=== PATIENT | male | born 1985 | race Caucasian/White ===

== ENCOUNTER 2025-03-11 17:09 | Observation (INO) ==
[2025-03-11] MEDS: SODIUM CHLORIDE 0.9% 1,000 ML IV ONE (18:05)
[2025-03-11 18:25] LABS: Hematocrit (blood only) 40.2 % (42.0-52.0); Hemoglobin 13.7 g/dl (14.0-18.0); Immature Granulocytes # (auto) 0.02 K/uL (0.01-0.20); Immature Granulocytes % (auto) 0.3 %; Mean Corpuscular Hemoglobin 29.5 pg (25.0-34.0); Mean Corpuscular Volume 86.5 fL (80.0-100.0); Platelet Count 237 K/uL (130-400); RDW Standard Deviation 37.7 fL (36.4-46.3); Red Blood Count 4.65 M/uL (4.70-6.10); White Blood Count 7.97 K/ul (4.8-10.8)
[2025-03-11 18:40] LABS: Alanine Aminotransferase 7.0 U/L (7-52); Albumin Level 3.6 gm/dl (3.4-5.0); Alkaline Phosphatase 66.0 U/L (34-104); Anion Gap 9.0 (3-11); Bilirubin,Total 0.4 mg/dl (0.2-1.0); Blood Urea Nitrogen 6.0 mg/dl (6-23); Calcium 8.8 mg/dl (8.6-10.3); Carbon Dioxide 26.0 mmol/L (21-32); Chloride 101.0 mmol/L (98-107); Creatinine Clr Calc Pharmacy 89.8 ml/min; Glucose 100.0 mg/dl (70-99(Fasting)); Lipase 407.0 U/L (11-82); Potassium 3.8 mmol/L (3.5-5.1); Sodium 136.0 mmol/L (136-145); Total Protein 6.3 gm/dl (6.0-8.3)
[2025-03-11 18:55] LABS: INR 1.0 (0.9-1.1); Partial Thromboplastin Time 29 Seconds (21-31); Prothrombin Time 10.7 Seconds (9.0-12.0)
[2025-03-11] MEDS: OPTIRAY 320 100ml IV ONE (19:22)
--- NOTE | 2025-03-11 19:48 | CT Scan Report ---
CT ABDOMEN and PELVIS with INTRAVENOUS CONTRAST HISTORY: Abdominal pain. Concern for pancreatitis TECHNIQUE: CT abdomen and pelvis with contrast. IV CONTRAST: 100 mL of OMNIPAQUE 300 ENTERIC CONTRAST: Not Given COMPARISON: None FINDINGS: The coronal and the sagittal reformats were not made available at the time of the dictation of this report LOWER CHEST: Unremarkable LIVER: Hepatomegaly. Scattered hypodensities measuring up to 9 mm are probably cysts or angiomas. GALLBLADDER/BILIARY: Unremarkable gallbladder. No abnormal biliary dilatation. SPLEEN: Unremarkable. PANCREAS: Unremarkable. No appreciable inflammation is detected ADRENALS: Unremarkable. KIDNEYS: Unremarkable. No stones or hydronephrosis identified. PERITONEUM/RETROPERITONEUM. No lymphadenopathy by size criteria. No aortic aneurysm. GASTROINTESTINAL: No obstruction. Diffuse inflammatory changes of the entire colon with wall thickening. Mild wall thickening of the stomach and the loops of small bowel is also present. Appendix is not definitively identified due to crowding of the visceral structures in the lower abdomen. Within this constraint, no significant pericecal inflammation is seen. REPRODUCTIVE: Unremarkable URINARY BLADDER: Mild wall thickening BONES: No acute findings. IMPRESSION: Findings of pancolitis and mild gastroenteritis. Appendix is not definitively identified due to crowding of the visceral structures in the lower abdomen. Within this constraint, no significant pericecal inflammation is seen. Inflammatory changes of the urinary bladder may be due to cystitis No significant inflammation is seen surrounding the pancreas however recommend correlation lipase to exclude a mild form of pancreatitis. Electronically signed by Samm Montes 03-11-2025 7:48 PM
[2025-03-11] MEDS: FIDAXOMICIN 200 MG TAB PO ONE (20:50)
[2025-03-11 21:19] LABS: Magnesium 1.9 mg/dl (1.7-2.4)
--- NOTE | 2025-03-11 22:06 | History & Physical Report ---
Date of Service March 11, 2025 Assessment & Plan (1) Colitis: (2) C. difficile colitis: Plan The patient is a 39-year-old male with past medical history including colitis, and C. difficile colitis. The patient presents to the emergency department with complaint of abdominal pain, persistent diarrhea and increasing blood in stool. Has a history of colitis, for which she is on mesalamine rectally. Due to a change in his usual symptoms, he had stool studies done a week ago, and was told he had C. difficile. He was placed on vancomycin orally, has been on it for 5 days, and since he had no improvement, was sent by outpatient gastroenterology to the ED for assessment. In emergency department, patient had a CT scan of abdomen and pelvis which showed a pancolitis, mild gastroenteritis, and cystitis. Lipase is mildly elevated at 407. He was given a dose of Dificid 200 milligrams, and normal saline 1 L bolus. Stool BioFire was ordered and pending. Patient reports at this time he was unsure if what was present now is the aggravation of his underlying colitis, or persistence of his C. difficile colitis. He has had significantly decreased oral intake over the past several days. He was [facility] for [facility], for further evaluation and treatment. C. difficile colitis/inflammatory colitis- Patient has known history of inflammatory colitis, for which he takes mesalamine VA as needed. He was diagnosed with C. difficile recently, and was placed on vancomycin orally, of which he is taking 5 days at this point. He presented to the emergency department because he was concerned that his C. difficile may not be responding to the vancomycin, due to the persistence of bloody diarrhea and abdominal pain. He reports that he is not sure if the diarrhea at this point is related to the C. difficile colitis, or if he is left with aggravation of his underlying inflammatory colitis. His outpatient GI doctors had considered a dosing of prednisone to see if the bloody diarrhea responded, but he was concerned about potential problem of prednisone worsening the C. difficile colitis that was the cause. His stool PCR testing is negative, including negative for C. difficile gene and C. difficile toxin. He did receive a single dose of Dificid in the ED, and he was to continue Dificid 200 mg twice daily, however, it would appear that the oral vancomycin has in fact made progress in clearing the C. difficile, and that the remaining underlying process may be associated with his inflammatory colitis. Will consult gastroenterology, and have them determine whether he should resume vancomycin orally and complete a 10-day course. Whether he should take a course of Dificid to verify that the C. difficile remains treated, since he still having some significant bloody diarrhea. Or should be placed on a course of prednisone orally/Solu-Medrol IV to treat the underlying inflammatory colitis and continue vancomycin or Dificid orally to treat the C. difficile and keep it from recurring. Full liquid diet Pantoprazole 40 mg IV now and 9 AM Zofran 4 mg IV every 6 hours as needed Acetaminophen 1 g IV every 8 hours as needed for mild pain or fever Mesalamine suppositories 1 g, VA at bedtime as needed Normal saline + KCl 20 mEq at 100 mL/h x 2 L Serial CBC with differential, chemistry profile and magnesium level History of Present Illness Chief Complaint: The patient presents to the emergency department with complaint of abdominal pain, persistent diarrhea and increasing blood in stool. Has a history of colitis, for which she is on mesalamine rectally. Due to a change in his usual symptoms, he had stool studies done a week ago, and was told he had C. difficile. He was placed on vancomycin orally, has been on it for 5 days, and since he had no improvement, was sent by outpatient gastroenterology to the ED for assessment. In emergency department, patient had a CT scan of abdomen and pelvis which showed a pancolitis, mild gastroenteritis, and cystitis. Lipase is mildly elevated at 407. He was given a dose of Dificid 200 milligrams, and normal saline 1 L bolus. Stool BioFire was ordered and pending. Patient reports at this time he was unsure if what was present now is the aggravation of his underlying colitis, or persistence of his C. difficile colitis. Primary Care Provider: Jonny Powell MD The patient is a 39-year-old male with past medical history including colitis, and C. difficile colitis. The patient presents to the emergency department with complaint of abdominal pain, persistent diarrhea and increasing blood in stool. Has a history of colitis, for which she is on mesalamine rectally. Due to a change in his usual symptoms, he had stool studies done a week ago, and was told he had C. difficile. He was placed on vancomycin orally, has been on it for 5 days, and since he had no improvement, was sent by outpatient gastroenterology to the ED for assessment. In emergency department, patient had a CT scan of abdomen and pelvis which showed a pancolitis, mild gastroenteritis, and cystitis. Lipase is mildly elevated at 407. He was given a dose of Dificid 200 milligrams, and normal saline 1 L bolus. Stool BioFire was ordered and pending. Patient reports at this time he was unsure if what was present now is the aggravation of his underlying colitis, or persistence of his C. difficile colitis. He has had significantly decreased oral intake over the past several days. He was referred to the [facility] for admission, for further evaluation and treatment Allergies Allergy/AdvReac Type Severity Reaction Status Date / Time No Known Allergies Allergy Verified 03/11/25 19:37 Home Medications Medication Instructions Recorded Confirmed Type mesalamine 1,000 mg rectal 1 g VA HS 03/11/25 03/11/25 History suppository prednisone 10 mg tablet 0 mg PO DIRECTED 03/11/25 03/11/25 History vancomycin 125 mg capsule 125 mg PO QID 03/11/25 03/11/25 History Past Med/Surg History Problem List (Updated 03/12/25 @ 00:09 by Chris Mann MD) Elevated lipase (Acute) C. difficile colitis (Acute) No significant past surgical history No significant past medical history Medical History (Updated 03/12/25 @ 00:09 by Chris Mann MD) Colitis Social History Smoking Status: Never smoker Hx Alcohol Use: Yes Hx Substance Use: Yes Last Used Substance: Days (ago) Preferred Language: Polish Communication Ability: Effective Swabber Required: No Beliefs That Will Affect Care: None Current Living Situation: Significant Other Current Living Situation Comment: lives at home with girlfriend Other Information That Helps Us Care for You: No Feels Safe at Home: Yes Safety Concerns: Feels Safe At This Time Assistive Devices: None Review of Systems Review of Systems: The patient denies chest pain, palpitations, shortness of breath, dyspnea on exertion, cough, lower extremity swelling, sore throat, fevers, chills, sweats, vomiting, blood in urine, dysuria, urinary frequency or urgency, lightheadedness, dizziness, headache, memory loss, loss of consciousness, rash, abnormal bruising, imbalance, focal or generalized weakness, numbness or tingling in arms or legs, generalized arthralgias or myalgias, back or neck pain, or night sweats. The review of systems is otherwise negative other than for that already noted above, and at least 10 systems have been reviewed. Physical Exam Physical Exam: The patient is awake, alert and oriented 3, well developed and well nourished, normocephalic and atraumatic, lying in bed and in no acute distress. HEENT--PERRL, EOMI, mucous membranes and oropharynx dry. Neck--supple. No JVD. No bruits. Thyroid normal, trachea midline, no adenopathy. Heart--normal S1 and S2. No murmurs, rubs or gallops. Lungs--clear bilaterally, no respiratory distress, no accessory muscle use. Abdomen--normal bowel sounds and soft. Generalized mild tenderness. Nondistended, no hernias or masses, no organomegaly. Extremities--no cyanosis or clubbing. No edema. Dermatologic--normal skin turgor, normal color, no abnormal lymph nodes, no rash. Neurologic--cranial nerves II through XII grossly intact. Rheumatologic--normal range of motion. Psychiatric--normal affect. Results & Data Results & Data Vital Signs (Past 12 Hours) Vital Signs Temp Pulse Pulse Resp BP BP Pulse Ox 03/11/25 21:55 76 03/11/25 20:00 65 20 138/74 99 03/11/25 18:23 64 03/11/25 18:04 69 20 135/79 97 03/11/25 17:58 70 22 98 03/11/25 17:30 36.9 C 84 20 126/78 98 O2 Del Method 03/11/25 21:55 03/11/25 20:00 Room Air 03/11/25 18:23 03/11/25 18:04 Room Air 03/11/25 17:58 Room Air 03/11/25 17:30 Room Air Laboratory Results Laboratory Results WBC 7.97 K/ul (4.8-10.8) 03/11/25 18:11 RBC 4.65 M/uL (4.70-6.10) L 03/11/25 18:11 Hgb 13.7 g/dl (14.0-18.0) L 03/11/25 18:11 Hct 40.2 % (42.0-52.0) L 03/11/25 18:11 MCV 86.5 fL (80.0-100.0) 03/11/25 18:11 MCH 29.5 pg (25.0-34.0) 03/11/25 18:11 MCHC 34.1 g/dL (32.0-36.0) 03/11/25 18:11 RDW Std Deviation 37.7 fL (36.4-46.3) 03/11/25 18:11 RDW Coeff of Liu 12.0 % (11.5-14.5) 03/11/25 18:11 Plt Count 237 K/uL (130-400) 03/11/25 18:11 MPV 9.1 fL (9.4-12.4) L 03/11/25 18:11 Immature Gran % (Auto) 0.3 % 03/11/25 18:11 Neut % (Auto) 68.5 % 03/11/25 18:11 Lymph % (Auto) 18.4 % 03/11/25 18:11 [place] % (Auto) 8.7 % 03/11/25 18:11 Eos % (Auto) 3.6 % 03/11/25 18:11 Baso % (Auto) 0.5 % 03/11/25 18:11 Neut # (Auto) 5.46 K/uL (1.40-6.50) 03/11/25 18:11 Lymph # (Auto) 1.47 K/uL (1.20-3.40) 03/11/25 18:11 [place] # (Auto) 0.69 K/uL (0.11-0.59) H 03/11/25 18:11 Eos # (Auto) 0.29 K/uL (0.00-0.50) 03/11/25 18:11 Baso # (Auto) 0.04 K/uL (0.00-0.20) 03/11/25 18:11 Immature Gran # (Auto) 0.02 K/uL (0.01-0.20) 03/11/25 18:11 PT 10.7 Seconds (9.0-12.0) 03/11/25 18:11 INR 1.0 (0.9-1.1) 03/11/25 18:11 APTT 29 Seconds (21-31) 03/11/25 18:11 PTT Ratio 1.1 03/11/25 18:11 Sodium 136 mmol/L (136-145) 03/11/25 18:11 Potassium 3.8 mmol/L (3.5-5.1) 03/11/25 18:11 Chloride 101 mmol/L (98-107) 03/11/25 18:11 Carbon Dioxide 26 mmol/L (21-32) 03/11/25 18:11 Anion Gap 9 (3-11) 03/11/25 18:11 BUN 6 mg/dl (6-23) 03/11/25 18:11 Creatinine 1.09 mg/dl (0.6-1.4) 03/11/25 18:11 Est Cr Clr Drug Dosing 89.8 ml/min 03/11/25 18:11 eGFR 89.65 03/11/25 18:11 BUN/Creatinine Ratio 5.5 (10-20) L 03/11/25 18:11 Glucose 100 mg/dl (70-99(Fasting)) H 03/11/25 18:11 Calcium 8.8 mg/dl (8.6-10.3) 03/11/25 18:11 Magnesium 1.9 mg/dl (1.7-2.4) 03/11/25 18:11 Total Bilirubin 0.4 mg/dl (0.2-1.0) 03/11/25 18:11 Direct Bilirubin 0.0 mg/dl (0-0.2) 03/11/25 18:11 AST 12 U/L (13-39) L 03/11/25 18:11 ALT 7 U/L (7-52) 03/11/25 18:11 Alkaline Phosphatase 66 U/L (34-104) 03/11/25 18:11 Total Protein 6.3 gm/dl (6.0-8.3) 03/11/25 18:11 Albumin 3.6 gm/dl (3.4-5.0) 03/11/25 18:11 Lipase 407 U/L (11-82) H 03/11/25 18:11 Stl C. cayetanensis PCR Not Detected (NotDetected) 03/11/25 23:42 Stool Rotavirus A PCR Not Detected (NotDetected) 03/11/25 23:42 Stl Adenov F 40/41 PCR Not Detected (NotDetected) 03/11/25 23:42 Stool Astrovirus (PCR) Not Detected (NotDetected) 03/11/25 23:42 Stool Campylobacter PCR Not Detected (NotDetected) 03/11/25 23:42 Stl C. diff Tox B Gene Negative Cdiff Gene (Neg) 03/11/25 23:42 Stl C. diff 027-NAP1-BI NEGATIVE 03/11/25 23:42 Stool Cryptosporidium PCR Not Detected (NotDetected) 03/11/25 23:42 Stl E.coli Shiga Tox PCR Not Detected (NotDetected) 03/11/25 23:42 Stl Enterotoxigenic E PCR Not Detected (NotDetected) 03/11/25 23:42 Stool EPEC (PCR) Not Detected (NotDetected) 03/11/25 23:42 Stool EAEC (PCR) Not Detected (NotDetected) 03/11/25 23:42 Stl E. histolytica PCR Not Detected (NotDetected) 03/11/25 23:42 Stool Giardia Lamblia PCR Not Detected (NotDetected) 03/11/25 23:42 Stool Salmonella PCR Not Detected (NotDetected) 03/11/25 23:42 Stool Sapovirus (PCR) Not Detected (NotDetected) 03/11/25 23:42 Stl P. shigelloides PCR Not Detected (NotDetected) 03/11/25 23:42 Stl Shigella/EIEC PCR Not Detected (NotDetected) 03/11/25 23:42 St Y.enterocolitica PCR Not Detected (NotDetected) 03/11/25 23:42 Stool Vibrio (PCR) Not Detected (NotDetected) 03/11/25 23:42 Stl Vibrio cholerae PCR Not Detected (NotDetected) 03/11/25 23:42 Stl Norovirus GI/GII PCR Not Detected (NotDetected) 03/11/25 23:42 Impressions Abdomen/Pelvis CT 03/11/25 18:46 CT ABDOMEN and PELVIS with INTRAVENOUS CONTRAST HISTORY: Abdominal pain. Concern for pancreatitis TECHNIQUE: CT abdomen and pelvis with contrast. IV CONTRAST: 100 mL of OMNIPAQUE 300 ENTERIC CONTRAST: Not Given COMPARISON: None FINDINGS: The coronal and the sagittal reformats were not made available at the time of the dictation of this report LOWER CHEST: Unremarkable LIVER: Hepatomegaly. Scattered hypodensities measuring up to 9 mm are probably cysts or angiomas. GALLBLADDER/BILIARY: Unremarkable gallbladder. No abnormal biliary dilatation. SPLEEN: Unremarkable. PANCREAS: Unremarkable. No appreciable inflammation is detected ADRENALS: Unremarkable. KIDNEYS: Unremarkable. No stones or hydronephrosis identified. PERITONEUM/RETROPERITONEUM. No lymphadenopathy by size criteria. No aortic aneurysm. GASTROINTESTINAL: No obstruction. Diffuse inflammatory changes of the entire colon with wall thickening. Mild wall thickening of the stomach and the loops of small bowel is also present. Appendix is not definitively identified due to crowding of the visceral structures in the lower abdomen. Within this constraint, no significant pericecal inflammation is seen. REPRODUCTIVE: Unremarkable URINARY BLADDER: Mild wall thickening BONES: No acute findings. IMPRESSION: Findings of pancolitis and mild gastroenteritis. Appendix is not definitively identified due to crowding of the visceral structures in the lower abdomen. Within this constraint, no significant pericecal inflammation is seen. Inflammatory changes of the urinary bladder may be due to cystitis No significant inflammation is seen surrounding the pancreas however recommend correlation lipase to exclude a mild form of pancreatitis. Electronically signed by Samm Montes 03-11-2025 7:48 PM Code Status & VTE Plan Code Status Full code VTE Prophylaxis Plan VTE Prophylaxis will be ordered: Yes PG Care Time/CCT Total # of Minutes Spent Total Time Spent with Patient: Total time spent is greater than 50% in coordination of care (as documented) at patient's floor/unit and/or counseling patient: Coding Level of Care Code 60415 INT INP/OBS CARE 3/75MIN Diagnoses Colitis K52.9 C. difficile colitis A04.72
[2025-03-11] MEDS: NSS + 20MEQ KCL 20 MEQ/1,000 ML BAG IV SCH (22:14)
--- NOTE | 2025-03-12 00:09 | Emergency Department Note ---
History of Present Illness General Chief Complaint: GI Assessment Stated Complaint: COLITIS, GI INFECTION, ABD PAIN, SX PAST WK OR SO Time Seen by Provider: 03/11/25 17:45 History of Present Illness Provider Complaint: abdominal pain Onset (ago): 1 week(s) Pain Consistency: intermittent Location: diffuse Severity: moderate Maximum Pain Intensity: 6 Quality: + cramping, + stabbing and + sharp Relieved By: + nothing Exacerbated By: + bowel movement Context: + recent antibiotic use (Patient reports he was recently diagnosed with C. difficile and has been on oral vancomycin prescribed by his GI doctor for the last 5 days) and + history of similar episodes (History of colitis.); no foreign travel, no possible food poisoning, no sick contacts, no recent surgery/procedure or no recent injury Associated Symptoms: + hematochezia; no nausea, no vomiting, no diarrhea, no fever, no chills, no constipation, no dysuria, no hematemesis, no hematuria, no headache, no neck pain, no chest pain and no breathing difficulty Home Medications Medication Instructions Recorded Confirmed Type mesalamine 1,000 mg rectal [address] HS 03/11/25 03/11/25 History suppository prednisone 10 mg tablet 0 mg PO DIRECTED 03/11/25 03/11/25 History vancomycin 125 mg capsule 125 mg PO QID 03/11/25 03/11/25 History Allergies Allergy/AdvReac Type Severity Reaction Status Date / Time No Known Allergies Allergy Verified 03/11/25 19:37 Past Med/Surg History Problem List (Updated 03/12/25 @ 00:09 by Chris Mann MD) Elevated lipase (Acute) C. difficile colitis (Acute) No significant past surgical history No significant past medical history Medical History (Updated 03/12/25 @ 00:09 by Chris Mann MD) Colitis Social History Smoking Status: Never smoker Preferred Language: Citizen Of [place] Feels Safe at Home: Yes Physical Exam 2 Vital Signs: Vital Signs - 24 hr 03/11/25 17:30 03/11/25 17:58 03/11/25 18:04 Temperature 36.9 C Temperature Source Oral Pulse Rate 84 70 Pulse Rate [Finger ] 69 Pulse Rhythm Regular Pulse Rhythm [Fing er] Pulse Strength Normal Pulse Strength [Fi nger] Respiratory Rate 20 22 20 Respiratory Effort / Characteristics Non-Labored Sponta neous Respiratory Depth Normal Respiratory Patter n Regular Blood Pressure 126/78 Blood Pressure [Le ft Arm] 135/79 Blood Pressure Margaret n 94 Blood Pressure Margaret n [Left Arm] 97 Blood Pressure Pos ition Sitting Blood Pressure Pos ition [Left Arm] Pulse Oximetry 98 98 97 Oxygen Delivery Me thod Room Air Room Air Room Air Sepsis Recent Feve r Within 48 Hours No Sepsis New/Unexpla ined Change in Men tamanna Status No Sepsis Action Take n by Nursing No Action Required 03/11/25 18:23 03/11/25 20:00 03/11/25 21:55 Temperature Temperature Source Pulse Rate 64 76 Pulse Rate [Finger ] 65 Pulse Rhythm Pulse Rhythm [Fing er] Regular Pulse Strength Pulse Strength [Fi nger] Normal Respiratory Rate 20 Respiratory Effort / Characteristics Non-Labored Sponta neous Respiratory Depth Normal Respiratory Patter n Regular Blood Pressure Blood Pressure [Le ft Arm] 138/74 Blood Pressure Margaret n Blood Pressure Margaret n [Left Arm] 95 Blood Pressure Pos ition Blood Pressure Pos ition [Left Arm] Lying Pulse Oximetry 99 Oxygen Delivery Me thod Room Air Sepsis Recent Feve r Within 48 Hours Sepsis New/Unexpla ined Change in Men tamanna Status Sepsis Action Take n by Nursing 03/11/25 22:00 03/11/25 23:53 Temperature Temperature Source Pulse Rate 79 Pulse Rate [Finger ] 65 Pulse Rhythm Pulse Rhythm [Fing er] Regular Pulse Strength Pulse Strength [Fi nger] Normal Respiratory Rate 18 20 Respiratory Effort / Characteristics Non-Labored Sponta neous Respiratory Depth Normal Respiratory Patter n Regular Blood Pressure 125/73 Blood Pressure [Le ft Arm] 131/80 Blood Pressure Margaret n Blood Pressure Margaret n [Left Arm] 97 Blood Pressure Pos ition Blood Pressure Pos ition [Left Arm] Lying Pulse Oximetry 99 97 Oxygen Delivery Me thod Room Air Room Air Sepsis Recent Feve r Within 48 Hours Sepsis New/Unexpla ined Change in Men tamanna Status Sepsis Action Take n by Nursing Physical Exam: Physical Exam GENERAL: oriented to person, place, and time. appears well-developed and well- nourished. She does not appear distressed. HENT: Exam performed. -Head: Normocephalic and atraumatic. -Right Ear: External ear normal. No mastoid erythema -Left Ear: External ear normal. No mastoid erythema -Mouth/Throat: The oropharynx is clear and moist. No trismus in the jaw. No dental abscesses or uvula swelling. No oropharyngeal exudate or tonsillar abscesses. EYES: Conjunctivae and EOM are normal.Right eye exhibits no discharge. Left eye exhibits no discharge. No scleral icterus. NECK: Normal range of motion. Neck supple. No JVD present. No tracheal deviation and normal range of motion present. CV: Normal rate, regular rhythm, normal heart sounds and intact distal pulses. There is no peripheral edema. Palpable radial pulses bue. PULM/CHEST: Effort normal and breath sounds normal. No respiratory distress. No stridor. no wheezes.no rales. -Chest Wall: no tenderness to palpation ABD: The abdomen is soft. Bowel sounds are normal. no distension. No mass is present. There is diffuse tenderness to palpation. There is no rebound, no guarding. MUSC/SKEL: Normal range of motion. There is no peripheral edema, tenderness or deformity. NEURO: Motor and sensation grossly intact. SKIN: Skin is warm and dry. not diaphoretic. PSYCH: normal mood and affect. Behavior is normal. Judgment and thought content normal. Course Course 1744: The patient was evaluated in room B8. A complete history and physical exam was performed Cardiac monitoring: An order was placed for continuous cardiac monitoring. The monitor shows a rate of 80 with sinus rhythm interpreted by me 2010: Vital signs stable. Labs are significant for normal white blood cell count of 7.97. Lipase 407. Imaging shows pancolitis and gastroenteritis. No significant inflammation surrounding the pancreas however the radiologist reads that they cannot exclude a mild form of pancreatitis. Patient reports no improvement of his symptoms with oral vancomycin. He also reports frustration and not being able to see his GI doctors and only be able to communicate with them through the online portal's. Patient will be switched from oral vancomycin to oral Dificid and be admitted to the hospitalist team for further evaluation by GI. Administered Medications Potassium Chloride/Sodium Chloride (Normal Saline W/20 Meq Kcl) 20 meq in 1,000 mls @ 100 mls/hr IV .Q10H LORAINE Stop: 03/12/25 17:59 Last Admin: 03/11/25 22:14 Dose: 100 mls/hr Documented By: YOSVANY Discontinued Medications Fidaxomicin (Fidaxomicin 200 Mg Tab) 200 mg PO NOW ONE Stop: 03/11/25 20:08 Last Admin: 03/11/25 20:50 Dose: 200 mg Documented By: YOSVANY Sodium Chloride (Nss) 1,000 mls @ 999 mls/hr IV .Q1H1M ONE Stop: 03/11/25 18:49 Last Infusion: 03/11/25 19:06 Dose: Infused Documented By: Admin: 03/11/25 18:05 Dose: 999 mls/hr Documented By: JIM Ioversol (Optiray 320 100ml) 90 ml IV ONCE ONE Stop: 03/11/25 19:23 Last Admin: 03/11/25 19:22 Dose: 90 ml Documented By: NABILA Medical Decision Making Laboratory Data Attestation: I reviewed the patient's lab results. 03/11/25 18:11 03/11/25 18:11 Lab Results 03/11/25 Range/Units 18:11 WBC 7.97 (4.8-10.8) K/ul RBC 4.65 L (4.70-6.10) M/uL Hgb 13.7 L (14.0-18.0) g/dl Hct 40.2 L (42.0-52.0) % MCV 86.5 (80.0-100.0) fL MCH 29.5 (25.0-34.0) pg MCHC 34.1 (32.0-36.0) g/dL RDW Std Deviation 37.7 (36.4-46.3) fL RDW Coeff of Liu 12.0 (11.5-14.5) % Plt Count 237 (130-400) K/uL MPV 9.1 L (9.4-12.4) fL Immature Gran % (Auto) 0.3 % Neut % (Auto) 68.5 % Lymph % (Auto) 18.4 % [place] % (Auto) 8.7 % Eos % (Auto) 3.6 % Baso % (Auto) 0.5 % Neut # (Auto) 5.46 (1.40-6.50) K/uL Lymph # (Auto) 1.47 (1.20-3.40) K/uL [place] # (Auto) 0.69 H (0.11-0.59) K/uL Eos # (Auto) 0.29 (0.00-0.50) K/uL Baso # (Auto) 0.04 (0.00-0.20) K/uL Immature Gran # (Auto) 0.02 (0.01-0.20) K/uL PT 10.7 (9.0-12.0) Seconds INR 1.0 (0.9-1.1) APTT 29 (21-31) Seconds PTT Ratio 1.1 Sodium 136 (136-145) mmol/L Potassium 3.8 (3.5-5.1) mmol/L Chloride 101 (98-107) mmol/L Carbon Dioxide 26 (21-32) mmol/L Anion Gap 9 (3-11) BUN 6 (6-23) mg/dl Creatinine 1.09 (0.6-1.4) mg/dl Est Cr Clr Drug Dosing 89.8 ml/min eGFR 89.65 BUN/Creatinine Ratio 5.5 L (10-20) Glucose 100 H (70-99(Fasting)) mg/dl Calcium 8.8 (8.6-10.3) mg/dl Magnesium 1.9 (1.7-2.4) mg/dl Total Bilirubin 0.4 (0.2-1.0) mg/dl Direct Bilirubin 0.0 (0-0.2) mg/dl AST 12 L (13-39) U/L ALT 7 (7-52) U/L Alkaline Phosphatase 66 (34-104) U/L Total Protein 6.3 (6.0-8.3) gm/dl Albumin 3.6 (3.4-5.0) gm/dl Lipase 407 H (11-82) U/L Imaging Data Radiologist's Impression: Abdomen/Pelvis CT 03/11/25 18:46 CT ABDOMEN and PELVIS with INTRAVENOUS CONTRAST HISTORY: Abdominal pain. Concern for pancreatitis TECHNIQUE: CT abdomen and pelvis with contrast. IV CONTRAST: 100 mL of OMNIPAQUE 300 ENTERIC CONTRAST: Not Given COMPARISON: None FINDINGS: The coronal and the sagittal reformats were not made available at the time of the dictation of this report LOWER CHEST: Unremarkable LIVER: Hepatomegaly. Scattered hypodensities measuring up to 9 mm are probably cysts or angiomas. GALLBLADDER/BILIARY: Unremarkable gallbladder. No abnormal biliary dilatation. SPLEEN: Unremarkable. PANCREAS: Unremarkable. No appreciable inflammation is detected ADRENALS: Unremarkable. KIDNEYS: Unremarkable. No stones or hydronephrosis identified. PERITONEUM/RETROPERITONEUM. No lymphadenopathy by size criteria. No aortic aneurysm. GASTROINTESTINAL: No obstruction. Diffuse inflammatory changes of the entire colon with wall thickening. Mild wall thickening of the stomach and the loops of small bowel is also present. Appendix is not definitively identified due to crowding of the visceral structures in the lower abdomen. Within this constraint, no significant pericecal inflammation is seen. REPRODUCTIVE: Unremarkable URINARY BLADDER: Mild wall thickening BONES: No acute findings. IMPRESSION: Findings of pancolitis and mild gastroenteritis. Appendix is not definitively identified due to crowding of the visceral structures in the lower abdomen. Within this constraint, no significant pericecal inflammation is seen. Inflammatory changes of the urinary bladder may be due to cystitis No significant inflammation is seen surrounding the pancreas however recommend correlation lipase to exclude a mild form of pancreatitis. Electronically signed by Samm Montes 03-11-2025 7:48 PM [facility] Narrative 1745: The patient was evaluated in room B8. A complete history and physical exam was performed Cardiac monitoring: An order was placed for continuous cardiac monitoring. The monitor shows a rate of 80 with sinus rhythm interpreted by nv 2010: Vital signs stable. Labs are significant for normal white blood cell count of 7.97. Lipase 407. Imaging shows pancolitis and gastroenteritis. No significant inflammation surrounding the pancreas however the radiologist reads that they cannot exclude a mild form of pancreatitis. Patient reports no improvement of his symptoms with oral vancomycin. He also reports frustration and not being able to see his GI doctors and only be able to communicate with them through the online portal's. Patient will be switched from oral vancomycin to oral Dificid and be admitted to the hospitalist team for further evaluation by GI. Impression & Plan C. difficile colitis, Elevated lipase Discharge Plan Visit Data Chief Complaint: GI Assessment Stated Complaint: COLITIS, GI INFECTION, ABD PAIN, SX PAST WK OR SO ED Provider: Chris Mann Discharge Problem: C. difficile colitis, Elevated lipase Patient Disposition: Being Evaluated by Hospitalist Condition: Fair Discharge Instructions Interventions: ED Discharge Assessment Last Done: 03/11/25 23:53 Forms Stand Alone Forms: My [employer] Prescriptions Prescriptions: No Action prednisone 10 mg Tablet 0 mg PO DIRECTED Rx Instructions: PER PT "DID NOT [employer] FROM PHARMACY YET, UNSURE OF STRENGTH". vancomycin 125 mg Capsule 125 mg PO QID Rx Instructions: PER PT "COURSE ENDS 03/16/25". mesalamine 1,000 mg Suppository [address] HS Referrals Referrals: Jonny Powell MD [Primary Care Provider] -
[2025-03-12] MEDS ORDERED: ACETAMINOPHEN 1000 MG/100 ML IV IV PRN (00:35)
[2025-03-12] MEDS ORDERED: ONDANSETRON INJ 2 MG/ML 2 ML VIAL IV PRN (00:35)
[2025-03-12 00:52] LABS: Cdiff Toxin B Gene (2yr or >) Negative Cdiff Gene (Neg)
[2025-03-12 01:23] LABS: Adenovirus F 40/41 PCR Not Detected (NotDetected); Campylobacter PCR Not Detected (NotDetected); Enteroaggregative E.coli(EAEC) Not Detected (NotDetected); Shiga-like Toxin E.coli (STEC) Not Detected (NotDetected); Vibrio species PCR Not Detected (NotDetected)
[2025-03-12] MEDS: PANTOprazole 40 MG/10 ML SYR IV ONE (01:55)
[2025-03-12 07:42] LABS: Hematocrit (blood only) 39.1 % (42.0-52.0); Hemoglobin 13.0 g/dl (14.0-18.0); Mean Corpuscular Hemoglobin 29.1 pg (25.0-34.0); Mean Corpuscular Volume 87.5 fL (80.0-100.0); Platelet Count 234 K/uL (130-400); RDW Standard Deviation 38.8 fL (36.4-46.3); Red Blood Count 4.47 M/uL (4.70-6.10); White Blood Count 8.19 K/ul (4.8-10.8)
[2025-03-12 07:58] LABS: Alanine Aminotransferase 6.0 U/L (7-52); Albumin Globulin Ratio 1.5 (0.9-2); Albumin Level 3.4 gm/dl (3.4-5.0); Alkaline Phosphatase 60.0 U/L (34-104); Anion Gap 8.0 (3-11); Bilirubin,Total 0.4 mg/dl (0.2-1.0); Blood Urea Nitrogen 5.0 mg/dl (6-23); Calcium 8.4 mg/dl (8.6-10.3); Carbon Dioxide 26.0 mmol/L (21-32); Chloride 105.0 mmol/L (98-107); Creatinine Clr Calc Pharmacy 89.4 ml/min; Globulin 2.2 gm/dl (2.5-4.0); Glucose 82.0 mg/dl (70-99(Fasting)); Magnesium 2.0 mg/dl (1.7-2.4); Potassium 4.0 mmol/L (3.5-5.1); Sodium 139.0 mmol/L (136-145); Total Protein 5.6 gm/dl (6.0-8.3)
[2025-03-12 08:04] LABS: Immature Granulocytes # (auto) 0.03 K/uL (0.01-0.20); Immature Granulocytes % (auto) 0.4 %; Polychromasia 1+
[2025-03-12] MEDS: FIDAXOMICIN 200 MG TAB PO SCH (08:28)
[2025-03-12] MEDS: PANTOprazole 40 MG/10 ML SYR IV SCH (08:28)
[2025-03-12 08:34] LABS: Dohle Bodies 1+
[2025-03-12 08:35] LABS: Toxic Granulation 1+
[2025-03-12 12:01] LABS: Lipase 493.0 U/L (11-82)
--- NOTE | 2025-03-12 12:41 | Gastrointestinal Consultation ---
Date of Consultation March 12, 2025 Assessment & Plan (1) C. difficile colitis: Difficult situation to decide if this is pure c.diff or if he has worsened UC. I don't see UC going from proctitis to diffuse pancolits because of c. diff but it is possible. He also has no risk factors for c. diff. I am going to give dificid one more day to make a difference to him and if he is not better tomorrow then I will do flex sig tomorrow afternoon. Hopefully that will clear the picture somewhat. History of Present Illness Reason for Consultation: c. diff colitis Attending Physician: Helio Raman MD History of Present Illness 39 year old man who has had ulcerative proctitis for ten years controlled for some time with oral and rectal mesalamine, more recently controlled with rectal mesalamine only. His flares typically are small amounts of bright red blood with normal, formed stools. No diarrhea and no pain. About two weeks ago he felt "fluish" and then when he got over that he started developing diarrhea last tuesday. He says he was going upwards of 20 times per day with more blood than he is used to seeing. Stool studies were done which were positive for c. diff and high fecal calprotectin. He was started on Vancomycin last Tuesday evening and he has not shown any signs of improvement. He was admitted to the hospital last night and his stools were negative for c. diff both toxin and gene. CT scan shows diffuse pancolitis with ?gastroenteritis as well. Today he is still about the same. He was switched to dificid in the ED yesterday Allergies Allergy/AdvReac Type Severity Reaction Status Date / Time No Known Allergies Allergy Verified 03/11/25 19:37 Home Medications Medication Instructions Recorded Confirmed Type mesalamine 1,000 mg rectal 1 g NV HS 03/11/25 03/11/25 History suppository prednisone 10 mg tablet 0 mg PO DIRECTED 03/11/25 03/11/25 History vancomycin 125 mg capsule 125 mg PO QID 03/11/25 03/11/25 History Patient History Medical History Colitis Social History Smoking Status: Never smoker Hx Alcohol Use: Yes Hx Substance Use: Yes Last Used Substance: Days (ago) Preferred Language: Bel[place]ian Communication Ability: Effective Revenue Accountant Required: No Beliefs That Will Affect Care: None Current Living Situation: Significant Other Current Living Situation Comment: lives at home with girlfriend Other Information That Helps Us Care for You: No Feels Safe at Home: Yes Safety Concerns: Feels Safe At This Time Assistive Devices: None Review of Systems Review of Systems: All systems reviewed & are unremarkable except as noted in HPI & below Physical Exam Physical Exam: Pleasant young man in no distress Constitutional: WD/WN, vitals as above Neck: trachea midline, no thyromegaly Respiratory: normal respiratory effort, lungs clear to auscultation Cardiovascular: RRR, no murmur, no edema Gastrointestinal (Abdomen): normal bowel sounds, soft, nontender, no hepatosplenomegaly Results & Data Vital Signs (Past 12 Hours) Vital Signs Temp Pulse Resp BP Pulse Ox O2 Del Method 03/12/25 07:30 37.1 C 71 18 120/73 96 Room Air Laboratory Results 03/12/25 03/11/25 03/11/25 Range/Units 07:01 23:42 18:11 WBC 8.19 7.97 (4.8-10.8) K/ul RBC 4.47 L 4.65 L (4.70-6.10) M/uL Hgb 13.0 L 13.7 L (14.0-18.0) g/dl Hct 39.1 L 40.2 L (42.0-52.0) % MCV 87.5 86.5 (80.0-100.0) fL MCH 29.1 29.5 (25.0-34.0) pg MCHC 33.2 34.1 (32.0-36.0) g/dL RDW Std Deviation 38.8 37.7 (36.4-46.3) fL RDW Coeff of Liu 12.1 12.0 (11.5-14.5) % Plt Count 234 237 (130-400) K/uL MPV 9.3 L 9.1 L (9.4-12.4) fL Immature Gran % (Auto) 0.4 0.3 % Neut % (Auto) 71.1 68.5 % Lymph % (Auto) 14.7 18.4 % [place] % (Auto) 8.4 8.7 % Eos % (Auto) 4.8 3.6 % Baso % (Auto) 0.6 0.5 % Neut # (Auto) 5.83 5.46 (1.40-6.50) K/uL Lymph # (Auto) 1.20 1.47 (1.20-3.40) K/uL [place] # (Auto) 0.69 H 0.69 H (0.11-0.59) K/uL Eos # (Auto) 0.39 0.29 (0.00-0.50) K/uL Baso # (Auto) 0.05 0.04 (0.00-0.20) K/uL Immature Gran # (Auto) 0.03 0.02 (0.01-0.20) K/uL Toxic Granulation 1+ Dohle Bodies 1+ Polychromasia 1+ PT 10.7 (9.0-12.0) Seconds INR 1.0 (0.9-1.1) APTT 29 (21-31) Seconds PTT Ratio 1.1 Sodium 139 136 (136-145) mmol/L Potassium 4.0 3.8 (3.5-5.1) mmol/L Chloride 105 101 (98-107) mmol/L Carbon Dioxide 26 26 (21-32) mmol/L Anion Gap 8 9 (3-11) BUN 5 L 6 (6-23) mg/dl Creatinine 1.19 1.09 (0.6-1.4) mg/dl Est Cr Clr Drug Dosing 89.4 89.8 ml/min eGFR 80.68 89.65 BUN/Creatinine Ratio 4.2 L 5.5 L (10-20) Glucose 82 100 H (70-99(Fasting)) mg/dl Calcium 8.4 L 8.8 (8.6-10.3) mg/dl Magnesium 2.0 1.9 (1.7-2.4) mg/dl Total Bilirubin 0.4 0.4 (0.2-1.0) mg/dl Direct Bilirubin 0.0 (0-0.2) mg/dl AST 9 L 12 L (13-39) U/L ALT 6 L 7 (7-52) U/L Alkaline Phosphatase 60 66 (34-104) U/L C-Reactive Protein 3.23 H (0-0.5) mg/dl Total Protein 5.6 L 6.3 (6.0-8.3) gm/dl Albumin 3.4 3.6 (3.4-5.0) gm/dl Globulin 2.2 L (2.5-4.0) gm/dl Albumin/Globulin Ratio 1.5 (0.9-2) Lipase 493 H 407 H (11-82) U/L Stl C. cayetanensis PCR Not Detected (NotDetected) Stool Rotavirus A PCR Not Detected (NotDetected) Stl Adenov F 40/41 PCR Not Detected (NotDetected) Stool Astrovirus (PCR) Not Detected (NotDetected) Stool Campylobacter PCR Not Detected (NotDetected) Stl C. diff Tox B Gene Negative Cdiff Gene (Neg) Stl C. diff 027-NAP1-BI NEGATIVE Stool Cryptosporidium PCR Not Detected (NotDetected) Stl E.coli Shiga Tox PCR Not Detected (NotDetected) Stl Enterotoxigenic E PCR Not Detected (NotDetected) Stool EPEC (PCR) Not Detected (NotDetected) Stool EAEC (PCR) Not Detected (NotDetected) Stl E. histolytica PCR Not Detected (NotDetected) Stool Giardia Lamblia PCR Not Detected (NotDetected) Stool Salmonella PCR Not Detected (NotDetected) Stool Sapovirus (PCR) Not Detected (NotDetected) Stl P. shigelloides PCR Not Detected (NotDetected) Stl Shigella/EIEC PCR Not Detected (NotDetected) St Y.enterocolitica PCR Not Detected (NotDetected) Stool Vibrio (PCR) Not Detected (NotDetected) Stl Vibrio cholerae PCR Not Detected (NotDetected) Stl Norovirus GI/GII PCR Not Detected (NotDetected) Diagnostic Findings Abdomen/Pelvis CT 03/11/25 18:46 CT ABDOMEN and PELVIS with INTRAVENOUS CONTRAST HISTORY: Abdominal pain. Concern for pancreatitis TECHNIQUE: CT abdomen and pelvis with contrast. IV CONTRAST: 100 mL of OMNIPAQUE 300 ENTERIC CONTRAST: Not Given COMPARISON: None FINDINGS: The coronal and the sagittal reformats were not made available at the time of the dictation of this report LOWER CHEST: Unremarkable LIVER: Hepatomegaly. Scattered hypodensities measuring up to 9 mm are probably cysts or angiomas. GALLBLADDER/BILIARY: Unremarkable gallbladder. No abnormal biliary dilatation. SPLEEN: Unremarkable. PANCREAS: Unremarkable. No appreciable inflammation is detected ADRENALS: Unremarkable. KIDNEYS: Unremarkable. No stones or hydronephrosis identified. PERITONEUM/RETROPERITONEUM. No lymphadenopathy by size criteria. No aortic aneurysm. GASTROINTESTINAL: No obstruction. Diffuse inflammatory changes of the entire colon with wall thickening. Mild wall thickening of the stomach and the loops of small bowel is also present. Appendix is not definitively identified due to crowding of the visceral structures in the lower abdomen. Within this constraint, no significant pericecal inflammation is seen. REPRODUCTIVE: Unremarkable URINARY BLADDER: Mild wall thickening BONES: No acute findings. IMPRESSION: Findings of pancolitis and mild gastroenteritis. Appendix is not definitively identified due to crowding of the visceral structures in the lower abdomen. Within this constraint, no significant pericecal inflammation is seen. Inflammatory changes of the urinary bladder may be due to cystitis No significant inflammation is seen surrounding the pancreas however recommend correlation lipase to exclude a mild form of pancreatitis. Electronically signed by Samm Montes 03-11-2025 7:48 PM
--- NOTE | 2025-03-12 14:38 | Hospitalist Progress Note ---
Date of Service March 12, 2025 Assessment & Plan (1) Colitis: (2) C. difficile colitis: (3) Elevated lipase: Plan The patient is a 39-year-old male with past medical history including UC (on mesalamine suppositories), and C. difficile colitis. The presents to ED with abdominal pain, persistent diarrhea and increasing blood in stool. Due to a change in his usual symptoms, he had stool studies done a week ago, + cdiff, treated with [address] A/P showed a pancolitis, mild gastroenteritis, and cystitis. Lipase is mildly elevated at 407. Stool studies negative, including cdiff. admitted for GI consultation #C. difficile colitis/inflammatory colitis- Patient has known history of Ulcerative colitis, for which he takes mesalamine [place]. Recently compled 5 day course of PO vanco. stool PCR testing is negative, including negative for C. difficile gene and C. difficile toxin. WIll continue dificid at this time GI consulted, Follows with [facility] - continue dificid, if no imporvement then flex sig tomorrow Full liquid diet Pantoprazole 40 mg IV now QAm CRP mildly elevated at 3, trend #Elevated Lipase - without signs of pancreatitis on imaging but + RUQ pain Hydrate - LR 125/hr Dispo: continued inpatient stay, GI reeval tomorrow DVT proh: SCDs, encourage ambulation Admission and Anticipated Discharge Date Admission Date: March 11, 2025 Subjective Patient seen sitting up in bed, girlfriend present at bedside. Reports that his pain is relatively better but he has not had solid intake. Reports that his pain is worse after eating mainly epigastric and left upper quadrant pain. Reports that normally pain is not abnormal symptom for his UC flares as he normally just has bloody bowel movements. He has been having bloody bowel movements. Does not feel like the frequency of bowel movements has improved. He has had UC for about 10 years with minimal flareups only needing prednisone 2-3 times, was on oral mesalamine but switched to suppositories in July. Has never been on a biologic. Review of Systems Review of Systems: All systems reviewed & are unremarkable except as noted in Subjective Physical Exam Physical Exam: General: NAD, VS as above Resp: normal respiratory effort, lungs clear to auscultation CV: RRR, no murmur, Abd: normal bowel sounds, Mild generalized tenderness, soft Extremities: Moves all extremities, no edema Neuro: A&O x3, Skin: intact, no lesions noted Results & Data Results & Data Vital Signs (Past 12 Hours) Vital Signs Temp Pulse Resp BP Pulse Ox O2 Del Method 03/12/25 07:30 98.8 F 71 18 120/73 96 Room Air Laboratory Results CBC, chemistry, lipase and CRP reviewed PG Care Time/CCT Total # of Minutes Spent Total Time Spent with Patient: Total time spent is greater than 50% in coordination of care (as documented) at patient's floor/unit and/or counseling patient: Coding Level of Care Code 41528 SUB INP/OBS CARE 3/50MIN Diagnoses Colitis K52.9 C. difficile colitis A04.72 Elevated lipase R74.8
[2025-03-12] MEDS: LACTATED RINGER'S 1,000 ML IV SCH (18:04)
[2025-03-12] MEDS: ACETAMINOPHEN 1,000 MG/100 ML VIAL IV PRN (20:16)
[2025-03-13 08:55] LABS: Hematocrit (blood only) 38.0 % (42.0-52.0); Hemoglobin 13.1 g/dl (14.0-18.0); Immature Granulocytes # (auto) 0.04 K/uL (0.01-0.20); Immature Granulocytes % (auto) 0.5 %; Mean Corpuscular Hemoglobin 30.2 pg (25.0-34.0); Mean Corpuscular Volume 87.6 fL (80.0-100.0); Platelet Count 251 K/uL (130-400); RDW Standard Deviation 38.4 fL (36.4-46.3); Red Blood Count 4.34 M/uL (4.70-6.10); White Blood Count 7.59 K/ul (4.8-10.8)
[2025-03-13 09:40] LABS: Alanine Aminotransferase 7.0 U/L (7-52); Albumin Globulin Ratio 1.1 (0.9-2); Albumin Level 2.9 gm/dl (3.4-5.0); Alkaline Phosphatase 60.0 U/L (34-104); Anion Gap 6.0 (3-11); Bilirubin,Total 0.3 mg/dl (0.2-1.0); Blood Urea Nitrogen 3.0 mg/dl (6-23); Calcium 8.5 mg/dl (8.6-10.3); Carbon Dioxide 30.0 mmol/L (21-32); Chloride 105.0 mmol/L (98-107); Creatinine Clr Calc Pharmacy 119.6 ml/min; Globulin 2.6 gm/dl (2.5-4.0); Glucose 90.0 mg/dl (70-99(Fasting)); Magnesium 1.9 mg/dl (1.7-2.4); Potassium 4.0 mmol/L (3.5-5.1); Sodium 141.0 mmol/L (136-145); Total Protein 5.5 gm/dl (6.0-8.3)
--- NOTE | 2025-03-13 12:18 | Gastroenterology Progress Note ---
Date of Service March 13, 2025 Assessment & Plan (1) Colitis: Plan: Still not clear what is going on. Will do flex sig today. Admission and Anticipated Discharge Date Admission Date: March 11, 2025 Subjective Says he is not doing any better. Still going every two hours, still bloody. Physical Exam Physical Exam: He looks well Constitutional: WD/WN, vitals as above Results & Data Vital Signs (Past 12 Hours) Vital Signs Temp Pulse Resp BP Pulse Ox O2 Del Method 03/13/25 08:05 36.4 C L 87 18 135/84 97 Room Air
--- NOTE | 2025-03-13 14:51 | Hospitalist Progress Note ---
Date of Service March 13, 2025 Assessment & Plan (1) Colitis: (2) C. difficile colitis: (3) Elevated lipase: Plan The patient is a 39-year-old male with past medical history including UC (on mesalamine suppositories), and C. difficile colitis. The presents to ED with abdominal pain, persistent diarrhea and increasing blood in stool. Due to a change in his usual symptoms, he had stool studies done a week ago, + cdiff, treated with [address] A/P showed a pancolitis, mild gastroenteritis, and cystitis. Lipase is mildly elevated at 407. Stool studies negative, including cdiff. admitted for GI consultation #C. difficile colitis/inflammatory colitis- Patient has known history of Ulcerative colitis, for which he takes mesalamine [place]. Recently compled 5 day course of PO vanco. stool PCR testing is negative, including negative for C. difficile gene and C. difficile toxin. No recent abx use. WIll continue dificid at this time GI consulted, Follows with [facility] - no improvement - plan for flex sig today Pantoprazole 40 mg IV QAm CRP slighlty increasing, continue to trend Less suspicious for cdiff at this time. more epigastric pain today, consider ?ulcer/gastritis if flex sig is unrevelaing #Elevated Lipase - without signs of pancreatitis on imaging but + RUQ pain Hydrate - LR 125/hr Dispo: continued inpatient stay, flex sig today DVT proh: SCDs, encourage ambulation Admission and Anticipated Discharge Date Admission Date: March 11, 2025 Supervising Physician Co-Signing Physician Notes I verified all alexandre points and agree with Angelika Xavier PA-C with the following exceptions and/or additions: None Subjective patient seen lying in bed reports feeling fatigued as he did not sleep well last night. Girlfriend is present at bedside. Reports pain is about the same more epigastric and left upper quadrant. Still having frequent bowel movements with blood. They are still diarrhea and have not started to take formed. Review of Systems Review of Systems: All systems reviewed & are unremarkable except as noted in Subjective Physical Exam Physical Exam: General: NAD, VS as above Resp: normal respiratory effort, lungs clear to auscultation CV: RRR, no murmur, Abd: normal bowel sounds, Mild generalized tenderness, soft Extremities: Moves all extremities, no edema Neuro: A&O x3, Skin: intact, no lesions noted Results & Data Results & Data Vital Signs (Past 12 Hours) Vital Signs Temp Pulse Resp BP Pulse Ox O2 Del Method 03/13/25 08:05 97.5 F L 87 18 135/84 97 Room Air Laboratory Results cbc, chemistry and LFTs reviewed CRP reviewed PG Care Time/CCT Total # of Minutes Spent Total Time Spent with Patient: Total time spent is greater than 50% in coordination of care (as documented) at patient's floor/unit and/or counseling patient: Coding Level of Care Code 81581 SUB INP/OBS CARE 3/50MIN Diagnoses Colitis K52.9 C. difficile colitis A04.72 Elevated lipase R74.8
--- NOTE | 2025-03-13 16:08 | History & Physical Report ---
Date of Service March 13, 2025 Assessment & Plan (1) Encounter for pre-operative examination: Plan: Pleasant man admitted with c. diff colitis although c. diff toxin/assay negative. No improvement after 7 days of treatment. Procedure and risks for flex sig discussed. He agrees. Admission and Anticipated Discharge Date Admission Date: March 13, 2025 History of Present Illness Chief Complaint: for flex sig Primary Care Provider: Jonny Powell MD 39 year old with either c. diff or UC. Flex sig planned. No sedation Allergies Allergy/AdvReac Type Severity Reaction Status Date / Time No Known Allergies Allergy Verified 03/13/25 16:02 Home Medications Medication Instructions Recorded Confirmed Type mesalamine 1,000 mg rectal 1 g GA HS 03/11/25 03/11/25 History suppository prednisone 10 mg tablet 0 mg PO DIRECTED 03/11/25 03/11/25 History vancomycin 125 mg capsule 125 mg PO QID 03/11/25 03/11/25 History Past Med/Surg History Problem List (Updated 03/13/25 @ 16:07 by Chapin Clark Jr, MD) Encounter for pre-operative examination Elevated lipase (Acute) C. difficile colitis (Acute) No significant past surgical history No significant past medical history Medical History Colitis Social History Smoking Status: Never smoker Hx Alcohol Use: Yes Hx Substance Use: Yes Last Used Substance: Days (ago) Preferred Language: Sami Communication Ability: Effective Preparing Box Tender Required: No Beliefs That Will Affect Care: None Current Living Situation: Significant Other Current Living Situation Comment: lives at home with girlfriend Other Information That Helps Us Care for You: No Feels Safe at Home: Yes Safety Concerns: Feels Safe At This Time Assistive Devices: None Physical Exam Constitutional: WD/WN, vitals as above Respiratory: normal respiratory effort, lungs clear to auscultation Cardiovascular: RRR, no murmur, no edema ASA Classification ASA ASA2 Results & Data Vital Signs (Past 12 Hours) Vital Signs Temp Pulse Resp BP Pulse Ox O2 Del Method 03/13/25 15:56 36.5 C 67 18 131/83 99 Room Air 03/13/25 08:05 36.4 C L 87 18 135/84 97 Room Air Code Status & VTE Plan VTE Prophylaxis Plan VTE Prophylaxis will be ordered: Yes
[2025-03-13] MEDS: SODIUM CHLORIDE 0.9% 500 ML IV SCH (16:14)
--- NOTE | 2025-03-13 16:30 | Communication Note ---
Date of Service: March 13, 2025 Flex sig shows evidence of ulcerative pancolitis. Starting po prednisone and mesalamine
--- NOTE | 2025-03-13 16:34 | GI REPORT ---
[facility] Patient: GRACIELA COOPER : 1985 Sex at : Male Age: 39 Years Procedure: Flexible Sigmoidoscopy Date: 03/13/2025 Attending Physician: Chapin Clark MD Referring MD: Emiliano Jiang MD Indications: - Clinically significant diarrhea of unexplained origin Medications: - None. Complications: - No immediate complications. Estimated Blood Loss: - Estimated blood loss was minimal. Procedure: - Prior to the procedure, a History and Physical was performed, and patient medications and allergies were reviewed. The patient's tolerance of previous anesthesia was also reviewed. The risks and benefits of the procedure and the sedation options and risks were discussed with the patient. All questions were answered, and informed consent was obtained. Prior Anticoagulants: The patient has taken no anticoagulant or antiplatelet agents. ASA Grade Assessment: II - A patient with mild systemic disease. After reviewing the risks and benefits, the patient was deemed in satisfactory condition to undergo the procedure. - The egd scope was introduced through the anus and advanced to the splenic flexure. - The flexible sigmoidoscopy was accomplished without difficulty. - The patient tolerated the procedure well. - The quality of the bowel preparation was excellent. Findings: - A diffuse area of moderately erythematous, friable (with contact bleeding) and granular mucosa was found in the rectum, in the sigmoid colon and in the descending colon. Biopsies were taken with a cold forceps for histology. Impression: - Erythematous, friable (with contact bleeding) and granular mucosa in the rectum, in the sigmoid colon and in the descending colon. Biopsied. Recommendation: - [facility] for [facility] care. Procedure Code(s): - 66696, Sigmoidoscopy, flexible; with biopsy, single or multiple Diagnosis Code(s): - R19.7, Diarrhea, unspecified - K62.89, Other specified diseases of anus and rectum - K63.89, Other specified diseases of intestine - K62.5, Hemorrhage of anus and rectum - K92.2, Gastrointestinal hemorrhage, unspecified CPT(R) - 202 copyright [employer]. All Rights Reserved. The CPT codes, CCI edits and ICD codes generated are intended as suggestions and were generated based on input data. These codes are preliminary and upon automotive brake adjuster review may be revised to meet current compliance and payer requirements. The provider is responsible for the final determination of appropriate codes, and modifiers. Dr. Chapin Clark MD This document has been electronically signed. Note Initiated:03/13/2025 Note Completed:03/13/2025 4:33 PM \\[id number]
[2025-03-13] MEDS: PROPOFOL IV EMULSION 10 MG/ML 20 ML VIAL IV ONE (17:45)
[2025-03-13] MEDS: LIDOCAINE 2% 2 ML VIAL/AMP(20MG/ML) INFIL ONE (17:45)
[2025-03-13] MEDS: ADVANCED PROBIOTIC 625 MG CAPSULE PO SCH (18:03)
[2025-03-13] MEDS: MESALAMINE 400 MG CAPDR PO SCH (20:28)
[2025-03-14 07:47] LABS: Hematocrit (blood only) 37.3 % (42.0-52.0); Hemoglobin 13.1 g/dl (14.0-18.0); Immature Granulocytes # (auto) 0.03 K/uL (0.01-0.20); Immature Granulocytes % (auto) 0.3 %; Mean Corpuscular Hemoglobin 30.4 pg (25.0-34.0); Mean Corpuscular Volume 86.5 fL (80.0-100.0); Platelet Count 254 K/uL (130-400); RDW Standard Deviation 37.9 fL (36.4-46.3); Red Blood Count 4.31 M/uL (4.70-6.10); White Blood Count 8.90 K/ul (4.8-10.8)
[2025-03-14 08:07] LABS: Alanine Aminotransferase 7.0 U/L (7-52); Albumin Globulin Ratio 1.1 (0.9-2); Albumin Level 2.8 gm/dl (3.4-5.0); Alkaline Phosphatase 60.0 U/L (34-104); Anion Gap 7.0 (3-11); Bilirubin,Total 0.3 mg/dl (0.2-1.0); Blood Urea Nitrogen 5.0 mg/dl (6-23); Calcium 8.4 mg/dl (8.6-10.3); Carbon Dioxide 29.0 mmol/L (21-32); Chloride 104.0 mmol/L (98-107); Creatinine Clr Calc Pharmacy 119.6 ml/min; Globulin 2.6 gm/dl (2.5-4.0); Glucose 97.0 mg/dl (70-99(Fasting)); Lipase 399.0 U/L (11-82); Potassium 3.8 mmol/L (3.5-5.1); Sodium 140.0 mmol/L (136-145); Total Protein 5.4 gm/dl (6.0-8.3)
--- NOTE | 2025-03-14 12:17 | Gastroenterology Progress Note ---
Date of Service March 14, 2025 Assessment & Plan (1) Colitis: Plan: He is improving. Close to discharge ready. When going home would send home on current doses of prednisone and mesalamine as well as completing course of dificid with early follow up with Nelly Ramirez in the clinic. I will not be here tomorrow. If he doesn't go home and you need GI, notify team art sales consultant tomorrow. Admission and Anticipated Discharge Date Admission Date: March 13, 2025 Subjective Says his pain is gone. Diarrhea decreased but still no form. Overall better on meds Physical Exam Physical Exam: He looks well Constitutional: WD/WN, vitals as above Results & Data Vital Signs (Past 12 Hours) Vital Signs Temp Pulse Resp BP Pulse Ox O2 Del Method 03/14/25 08:00 36.7 C 67 16 120/69 95 Room Air
--- NOTE | 2025-03-14 14:59 | Hospitalist Progress Note ---
Date of Service March 14, 2025 Assessment & Plan (1) Colitis: (2) C. difficile colitis: (3) Elevated lipase: Plan The patient is a 39-year-old male with past medical history including UC (on mesalamine suppositories), and C. difficile colitis. The presents to ED with abdominal pain, persistent diarrhea and increasing blood in stool. Due to a change in his usual symptoms, he had stool studies done a week ago, + cdiff, treated with [address] A/P showed a pancolitis, mild gastroenteritis, and cystitis. Lipase is mildly elevated at 407. Stool studies negative, including cdiff. Admitted for GI consultation. #C. difficile colitis/inflammatory colitis- Patient has known history of Ulcerative colitis, for which he takes mesalamine [place]. Recently completed 5 day course of PO vanco. stool PCR testing is negative, including negative for C. difficile gene and C. difficile toxin. No recent abx use. -Dificid treatment for cdiff -GI consulted, Follows with [facility] on outside -flex sig 03/13 with evidence of ulcerative pancolitis with rec to start daily prednisone and oral mesalamine -prednisone 30mg daily, mesalamine 800mg po TID for pancolitis identified on flex sig -Pantoprazole 40 mg IV daily -trend CRP #Elevated Lipase - without signs of pancreatitis on imaging, denies hx of ETOH overuse or abuse -Hydrate - LR 125/hr -trends 493>399, less concern as values are not 3xULN, non-specific in setting of acute inflammatory state Dispo: continued inpatient stay, possible d/c tomorrow DVT proph: SCDs, encourage ambulation Admission and Anticipated Discharge Date Admission Date: March 13, 2025 Subjective Up walking in room this am with girlfriend present. States he has had two episodes of bloody diarrhea today. Diet advanced and tolerating without GI discomfort, nausea, vomiting. Relayed he would like to stay on Dificid after discharge to continue course of treatment for C-diff. Review of Systems Review of Systems: All systems reviewed & are unremarkable except as noted in Subjective Physical Exam Physical Exam: GENERAL APPEARANCE: A&O. Walking in room. NAD. SKIN: Normal color without rashes or lesions. Normal turgor. HEENT: Head AT/NC. Buccal mucosa is moist and pink. HEART: RRR without m/g/r LUNGS: Normal inspiratory effort. CTA without w/r/r. ABDOMEN: No guarding or rigidity. Hyperactive BS in all four quadrants. Abdomen soft and NT. MSK: No bony gross/deformities throughout. ROM intact. EXTREMITIES: No edema, No peripheral cyanosis. Neuro: CN 2-12 grossly intact. No focal neuro deficits PSYCHIATRIC: Normal affect. Eye contact is good. Speech is normal rate and content. Responses are appropriate. Results & Data Results & Data Vital Signs (Past 12 Hours) Vital Signs Temp Pulse Resp BP Pulse Ox O2 Del Method 03/14/25 08:00 36.7 C 67 16 120/69 95 Room Air Laboratory Results Labs reviewed: CBC, lipase, CRP, CMP PG Care Time/CCT Total # of Minutes Spent Total Time Spent with Patient: Total time spent is greater than 50% in coordination of care (as documented) at patient's floor/unit and/or counseling patient: Coding Level of Care Code 52623 SUB INP/OBS CARE 2/35MIN Diagnoses Colitis K52.9 C. difficile colitis A04.72 Elevated lipase R74.8
[2025-03-15] MEDS: ACETAMINOPHEN 1,000 MG/100 ML VIAL IV PRN (02:35)
[2025-03-15 07:59] VITALS: RESP 16
[2025-03-15] MEDS ORDERED: MoRPHine SULFATE 2 MG/ML CARP IV PRN (10:15)
[2025-03-15 10:17] LABS: Hematocrit (blood only) 39.5 % (42.0-52.0); Hemoglobin 13.2 g/dl (14.0-18.0); Immature Granulocytes # (auto) 0.04 K/uL (0.01-0.20); Immature Granulocytes % (auto) 0.3 %; Mean Corpuscular Hemoglobin 29.3 pg (25.0-34.0); Mean Corpuscular Volume 87.8 fL (80.0-100.0); Platelet Count 320 K/uL (130-400); RDW Standard Deviation 39.0 fL (36.4-46.3); Red Blood Count 4.50 M/uL (4.70-6.10); White Blood Count 11.73 K/ul (4.8-10.8)
[2025-03-15 10:34] LABS: Anion Gap 4.0 (3-11); Blood Urea Nitrogen 8.0 mg/dl (6-23); Calcium 8.5 mg/dl (8.6-10.3); Carbon Dioxide 33.0 mmol/L (21-32); Chloride 106.0 mmol/L (98-107); Creatinine Clr Calc Pharmacy 90.2 ml/min; Glucose 94.0 mg/dl (70-99(Fasting)); Lipase 515.0 U/L (11-82); Potassium 4.0 mmol/L (3.5-5.1); Sodium 143.0 mmol/L (136-145)
--- NOTE | 2025-03-15 11:02 | Communication Note ---
Date of Service: March 15, 2025 [facility] was asked to provide cross coverage for [facility] patient. Chart reviewed. 39 year old male w/ ulcerative colitis, recent c.diff infection admitted following failure to improve, transitioned to Dificid. Repeat stool studies and c.diff negative. Endosocpic evaluation concerning for pancolitis. He was restarted on both oral prednisone and oral mesalamine. Kurtis notes some setbacks w/ dietary advancement yesterday. More abd cramping, urgency/frequency of stool have increased w/ some blood. No black stools. Endorses 8 loose, watery movements in the last 24 hours. Hemodynamically stable, WBC 11, H&H 13.2/39.5. Stool PCR. C.diff negative. Colonoscopy w/ erythematous, friable (with contact bleeding) and granular mucosa in the rectum, in the sigmoid colon and in the descending colon. Biopsies w/ focal acute colitis is seen, acute and chronic inflammation of the lamina propria is seen but crypt abscesses and granulomata are not present. Differe ntial diagnosis lies between C. difficile colitis, other infectious colitides and a self-limited colitis. Continue course of Dificid. Consider Peppermint PRN for cramping. Can d/c prednisone as biopsies most consistent w/ infectious colitis. Continue oral mesalamine as ordered. Back down diet today to clear liquids. Needs OP follow up with Nelly Ramirez PA-C at [facility].
--- NOTE | 2025-03-15 15:34 | Hospitalist Progress Note ---
Date of Service March 15, 2025 Assessment & Plan (1) Colitis: (2) C. difficile colitis: (3) Elevated lipase: Plan The patient is a 39-year-old male with past medical history including UC (on mesalamine suppositories), and C. difficile colitis. The presents to ED with abdominal pain, persistent diarrhea and increasing blood in stool. Due to a change in his usual symptoms, he had stool studies done a week ago, + cdiff, treated with [address] A/P showed a pancolitis, mild gastroenteritis, and cystitis. Lipase is mildly elevated at 407. Stool studies negative, including cdiff. Admitted for GI consultation. #C. difficile colitis/inflammatory colitis- Patient has known history of Ulcerative colitis, for which he takes mesalamine [place]. Recently completed 5 day course of PO vanco. stool PCR testing is negative, including negative for C. difficile gene and C. difficile toxin. No recent abx use. -Dificid treatment for cdiff -GI consulted, Follows with [facility] on outside -flex sig 03/13 with evidence of ulcerative pancolitis with rec to start daily prednisone and oral mesalamine -prednisone 30mg daily, mesalamine 800mg po TID for pancolitis identified on flex sig -Pantoprazole 40 mg IV daily -CRP 2.17 this am -Surgical path with focal acute colitis is seen, acute and chronic inflammation of the lamina propria is seen but crypt abscesses and granulomata are not present. Differential diagnosis lies between C. difficile colitis, other infectious colitides and a self-limited colitis. -GI recs to d/c prednisone as biopsies most consistent with infectious colitis -ID consulted #Elevated Lipase - without signs of pancreatitis on imaging, denies hx of ETOH overuse or abuse -Hydrate - LR 125/hr, d/c IVF today -trends 493>399>515, less concern as values are not 3xULN, non-specific in setting of acute inflammatory state Dispo: continued inpatient stay, possible d/c tomorrow DVT proph: SCDs, encourage ambulation Admission and Anticipated Discharge Date Admission Date: March 13, 2025 Subjective Sitting up in room today. Reports he has had frequent bouts of bloody diarrhea from last evening and throughout the night every 2-3 hours. He also has LUQ abdominal discomfort that has returned. States pain is constant and sharp in nature. He did take IV Tylenol last evening that minimally helped relieve his pain. His diet was advanced last evening and although he has had no nausea/vomiting, his diarrhea frequency has increased. He and girlfriend are requesting to speak with case management regarding insurance costs if he is discharged on Dificid. Review of Systems Review of Systems: All systems reviewed & are unremarkable except as noted in Subjective Physical Exam Physical Exam: GENERAL APPEARANCE: A&O. Sitting up in chair.. NAD. SKIN: Normal color without rashes or lesions. Normal turgor. HEENT: Head AT/NC. Buccal mucosa is moist and pink. NECK: No jugular venous distention. No thyroid enlargement. There is no lymphadenopathy. HEART: RRR without m/g/r. LUNGS: Normal inspiratory effort. CTA without w/r/r. ABDOMEN: No guarding or rigidity. Normoactive BS in all four quadrants. No tenderness to LUQ of abdomen with palpation. MSK: No bony gross/deformities throughout. ROM intact. EXTREMITIES: No edema, No peripheral cyanosis. Neuro: CN 2-12 grossly intact. No focal neuro deficits PSYCHIATRIC: Normal affect. Eye contact is good. Speech is normal rate and content. Responses are appropriate. Results & Data Results & Data Vital Signs (Past 12 Hours) Vital Signs Temp Pulse Resp BP Pulse Ox O2 Del Method 03/15/25 07:35 36.5 C 69 16 119/69 98 Room Air Laboratory Results Labs reviewed: CBC, CRP, Lipase, BMP PG Care Time/CCT Total # of Minutes Spent Total Time Spent with Patient: Total time spent is greater than 50% in coordination of care (as documented) at patient's floor/unit and/or counseling patient: Coding Level of Care Code 98879 SUB INP/OBS CARE 235MIN Diagnoses Colitis K52.9 C. difficile colitis A04.72 Elevated lipase R74.8
--- NOTE | 2025-03-15 16:03 | Infectious Disease Consult ---
Date of Consultation March 15, 2025 Assessment & Plan (1) Colitis: Plan This is a 39-year-old man with past medical history of ulcerative colitis previously on oral and rectal mesalamine, now on rectal mesalamine who presents with a worsening diarrhea. Approximately a week and a half ago he developed diarrhea with up to 20 loose stools that were bloody. He reports he had outpatient stool studies done that were positive for C. difficile. He was started on oral vancomycin. He took about 5 days of therapy with minimal improvement. He presented to the ED for further evaluation. He endorsed profuse body diarrhea, abdominal cramping and pain. In the ED he is afebrile and hemodynamic stable. Labs: WBC 7.97, BUN 6, creatinine 1.09, lipase 407. Stool pathogen PCR negative, C. difficile toxin gene and C. difficile [id number] AP showed findings of pa ncolitis and mild gastroenteritis. No significant inflammation is seen surrounding the pancreas. He was evaluated by GI. It was difficult to decide if his presentation was secondary to C. difficile or worsening ulcerative colitis. He was also started on Dificid in ED on 03/11. He underwent flexible sigmoidoscopy on 03/13. Findings demonstrated a diffuse area of moderately erythematous, friable and granular mucosa in the rectum, sigmoid colon and descending colon. There was concern for ulcerative pancolitis, so he was started on prednisone and mesalamine. Biopsy showed focal acute colitis. Microscopy revealed multiple fragments of colonic mucosa with maintenance of the glandular architecture. Granulomatous inflammation was not seen. Focally, moderate acute and chronic inflammation of the lamina propria was seen but crypt abscesses and granulomata was not present. There was mild edema and lack of pseudomembranes or superficial erosions. The differential diagnosis was between C. difficile colitis, other infectious colitis and a self-limited colitis. Inflammatory bowel disease was not seen. Prednisone was discontinued as biopsies were more consistent with infectious process. Patient initially had some improvement but today reports frequent bouts of bloody diarrhea overnight with left upper quadrant abdominal discomfort. Infectious consulted for possible C. difficile colitis. An E consult was completed per chart review and discussion with staff. No telepresenter available for video visit at time of consult. Microbiology 03/11 GI stool PCR panel negative 03 11 stool C diff toxin B gene and C. difficile [id number] [id number] pcr negative Antibiotics Status post 5 days of p.o. vancomycin (per report)- outpatient Fidaxomicin 10/13current # Persistent diarrhea # Possible C. difficile -outpatient testing positive for C. difficile per report, not verified -C. difficile testing negative here - Pancolitis on CTAP # Ulcerative colitis, on mesalamine suppositories # Elevated lipase Discussion: This is a patient with ulcerative colitis on rectal mesalamine who presents with worsening diarrhea for 1 week. He was diagnosed outpatient with C. difficile colitis and was started on oral vancomycin he took approximately 5 days of therapy and diarrhea worsened . Abdominal imaging shows pancolitis. Repeat C. difficile testing negative. Stool pathogen PCR negative. Lipase elevated. Sigmoidoscopy findings showed findings concerning for ulcerative pancolitis with diffuse areas of friable erythematous and granular mucosa in the rectum, sigmoid colon and descending colon. Biopsies however showed focal acute colitis findings are more concerning for C. difficile colitis or other infectious or self-limited colitis. He was started briefly on prednisone which was stopped. I discussed with primary team CRIMINAL LEGAL ASSISTANT and unable to obtain outside C. difficile testing results Recommendations: Complete 10 days of Dificid 200 mg p.o. twice daily (03/11- 03/21). Communicated recommendations to CRIMINAL LEGAL ASSISTANT. Thank you for this consult. Infectious disease will sign off. Lee Ann Griffith MD, MPH Infectious Disease [facility] Call [phone] with questions Consultation Information This patient recommendation is based on a telemedicine consult request which was completed asynchronously through chart review and information provided by the primary physician. The patient was not seen or examined today. The evaluation is consultative in nature and all patient care and treatment decisions can either be accepted or rejected by the patient's primary hospital-based treating physician using their own independent medical judgment for their patient. Information Specialist contact information: Please call [facility] Center . (Phone Number For Physician Use Only) Time Spent Reviewing Chart: 31+ minutes History of Present Illness Reason for Consultation: ? cdiff Requesting Physician: CHANA High Attending Physician: Pamela Membreno MD History of Present Illness This is a 39-year-old man with past medical history of ulcerative colitis previously on oral and rectal mesalamine, now on rectal mesalamine who presents with a worsening diarrhea. Approximately a week and a half ago he developed d iarrhea with up to 20 loose stools that were bloody. He reports he had outpatient stool studies done that were positive for C. difficile. He was started on oral vancomycin. He took about 5 days of therapy with minimal improvement. He presented to the ED for further evaluation. He endorsed profuse body diarrhea, abdominal cramping and pain. In the ED he is afebrile and hemodynamic stable. Labs: WBC 7.97, BUN 6, creatinine 1.09, lipase 407. Stool pathogen PCR negative, C. difficile toxin gene and C. difficile [id number] AP showed findings of pancolitis and mild gastroenteritis. No significant inflammation is seen surrounding the pancreas. He was evaluated by GI. It was difficult to decide if his presentation was secondary to C. difficile or worsening ulcerative colitis. He was also started on Dificid in ED on 03/11. He underwent flexible sigmoidoscopy on 03/13. Findings demonstrated a diffuse area of moderately erythematous, friable and granular mucosa in the rectum, sigmoid colon and descending colon. There was concern for ulcerative pancolitis, so he was started on prednisone and mesalamine. Biopsy showed focal acute colitis. Microscopy revealed multiple fragments of colonic mucosa with maintenance of the glandular architecture. Granulomatous inflammation was not seen. Focally, moderate acute and chronic inflammation of the lamina propria was seen but crypt abscesses and granulomata was not present. There was mild edema and lack of pseudomembranes or superficial erosions. The differential diagnosis was between C. difficile colitis, other infectious colitis and a self-limited colitis. Inflammatory bowel disease was not seen. Prednisone was discontinued as biopsies were more consistent with infectious process. Patient initially had some improvement but today reports frequent bouts of bloody diarrhea overnight with left upper quadrant abdominal discomfort. Infectious consulted for possible C. difficile colitis. An E consult was completed per chart review and discussion with staff. No telepresenter available for video visit at time of consult. Allergies Allergy/AdvReac Type Severity Reaction Status Date / Time No Known Allergies Allergy Verified 03/13/25 16:02 Home Medications Medication Instructions Recorded Confirmed Type mesalamine 1,000 mg rectal 1 g UT HS 03/11/25 03/11/25 History suppository prednisone 10 mg tablet 0 mg PO DIRECTED 03/11/25 03/11/25 History vancomycin 125 mg capsule 125 mg PO QID 03/11/25 03/11/25 History fidaxomicin 200 mg tablet (Dificid) 200 mg PO BID #4 tabs 03/14/25 Rx Patient History Medical History Colitis Social History Smoking Status: Never smoker Hx Alcohol Use: Yes Hx Substance Use: Yes Last Used Substance: Days (ago) Preferred Language: Citizen Of [place] Communication Ability: Effective 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 Beliefs That Will Affect Care: None Current Living Situation: Significant Other Current Living Situation Comment: lives at home with girlfriend Other Information That Helps Us Care for You: No Feels Safe at Home: Yes Safety Concerns: Feels Safe At This Time Assistive Devices: None Results & Data Vital Signs (Past 12 Hours) Vital Signs Temp Pulse Resp BP Pulse Ox O2 Del Method 03/15/25 14:39 36.7 C 60 16 118/72 96 Room Air 03/15/25 07:35 36.5 C 69 16 119/69 98 Room Air Laboratory Results Laboratory Results - last 48 hr 03/14/25 03/15/25 07:14 09:23 WBC 8.90 11.73 H RBC 4.31 L 4.50 L Hgb 13.1 L 13.2 L Hct 37.3 L 39.5 L MCV 86.5 87.8 MCH 30.4 29.3 MCHC 35.1 33.4 RDW Std Deviation 37.9 39.0 RDW Coeff of Liu 11.9 12.2 Plt Count 254 320 MPV 9.2 L 9.3 L Immature Gran % (Auto) 0.3 0.3 Neut % (Auto) 74.3 73.3 Lymph % (Auto) 14.6 15.8 [place] % (Auto) 6.9 5.5 Eos % (Auto) 3.6 4.6 Baso % (Auto) 0.3 0.5 Neut # (Auto) 6.61 H 8.59 H Lymph # (Auto) 1.30 1.85 [place] # (Auto) 0.61 H 0.65 H Eos # (Auto) 0.32 0.54 H Baso # (Auto) 0.03 0.06 Immature Gran # (Auto) 0.03 0.04 Sodium 140 143 Potassium 3.8 4.0 Chloride 104 106 Carbon Dioxide 29 33 H Anion Gap 7 4 BUN 5 L 8 Creatinine 0.89 1.18 Est Cr Clr Drug Dosing 119.6 90.2 eGFR 113.19 81.50 BUN/Creatinine Ratio 5.6 L 6.8 L Glucose 97 94 Calcium 8.4 L 8.5 L Total Bilirubin 0.3 AST 10 L ALT 7 Alkaline Phosphatase 60 C-Reactive Protein 4.13 H 2.17 H Total Protein 5.4 L Albumin 2.8 L Globulin 2.6 Albumin/Globulin Ratio 1.1 Lipase 399 H 515 H Medications Administered Home Medications Medication Instructions Recorded Confirmed Last Taken mesalamine 1,000 mg rectal 1 g UT HS 03/11/25 03/11/25 03/10/25 suppository prednisone 10 mg tablet 0 mg PO DIRECTED 03/11/25 03/11/25 Unknown vancomycin 125 mg capsule 125 mg PO QID 03/11/25 03/11/25 03/11/25 12:00 fidaxomicin 200 mg tablet (Dificid) 200 mg PO BID #4 tabs 03/14/25 Unknown Active Medications Generic Name Dose Route Start Last Admin Trade Name Ariq PRN Reason Stop Dose Admin Fidaxomicin 200 mg 03/12/25 09:00 03/15/25 09:57 Fidaxomicin 200 Mg Tab PO 03/22/25 08:59 200 mg BID LORAINE Administration Pantoprazole Sodium 40 mg in 10 mls @ 5 mls/min 03/12/25 09:00 03/15/25 09:49 Protonix IV 04/11/25 08:59 5 mls/min DAILY LORAINE Administration Acetaminophen 1,000 mg in 100 mls @ 400 mls/hr 03/15/25 02:27 03/15/25 02:50 Ofirmev IV 03/18/25 02:26 Infused Q8H PRN Infusion Pain or Fever Lactobacillus Acidophilus 1,250 mg 03/13/25 15:30 03/15/25 09:49 Advanced Probiotic 625 Mg Capsule PO 04/12/25 15:29 1,250 mg DAILY LORAINE Administration Mesalamine 800 mg 03/13/25 21:00 03/15/25 13:58 Mesalamine 400 Mg Capdr PO 04/12/25 20:59 800 mg TID LORAINE Administration Miscellaneous 1 each 03/12/25 00:45 03/15/25 09:50 (Mesalamine 1,000 Mg Suppository)Order Awaiting Action N/A 04/11/25 00:44 Not Given [facility] Prednisone 30 mg 03/13/25 16:30 03/15/25 09:49 Prednisone 10 Mg Tablet PO 04/12/25 16:29 30 mg QAM [facility] Administration
--- NOTE | 2025-03-15 19:24 | Communication Note ---
Date of Service: March 15, 2025 Patient seen at the bedside. He had questions in regards to his colitis and management. Patient has a history of left-sided ulcerative colitis. He has documented C. difficile. Comes in now with continued symptoms. Seen by Dr. Clark flexible sigmoidoscopy was suggestive of inflammatory bowel disease biopsies however suggest more likely self-limited colitis there were no cryptitis or crypt abscesses. Patient had some cramping following coconut juice on 2 separate occasions during this hospital stay since he is cut that out he symptoms seem to be improved. Because of his bout of C. difficile and the risk of relapse biopsy is not suggestive of inflammatory bowel disease at this time I think it be prudent to stop his prednisone I reviewed that with him. Patient undoubtedly has an underlying IBD. I would recommend he take oral mesalamine which he has been off and can continue rectal mesalamine. He should take the oral mesalamine daily. Continue management of his C. difficile. He should complete a 10-day course of deficit or complete his vancomycin. Prevention of relapse and reinfection reviewed. Should follow-up with his primary care physician or [facility] within 2 weeks. Return if recurrent or worsening symptoms. They are inquiring whether his disease will go back to his left sided disease which she has had for 10 ye ars. Presumably the degeneration is related to C. difficile I think that is probable.
[2025-03-15] MEDS ORDERED: MoRPHine SULFATE 4 MG/ML 1 ML CARP\\VIAL IV PRN (21:35)
[2025-03-16 08:31] LABS: Hematocrit (blood only) 39.1 % (42.0-52.0); Hemoglobin 12.8 g/dl (14.0-18.0); Mean Corpuscular Hemoglobin 28.9 pg (25.0-34.0); Mean Corpuscular Volume 88.3 fL (80.0-100.0); Platelet Count 300 K/uL (130-400); RDW Standard Deviation 39.1 fL (36.4-46.3); Red Blood Count 4.43 M/uL (4.70-6.10); White Blood Count 10.85 K/ul (4.8-10.8)
[2025-03-16 08:52] LABS: Anion Gap 7.0 (3-11); Blood Urea Nitrogen 8.0 mg/dl (6-23); Calcium 8.4 mg/dl (8.6-10.3); Carbon Dioxide 29.0 mmol/L (21-32); Chloride 105.0 mmol/L (98-107); Creatinine Clr Calc Pharmacy 91.8 ml/min; Glucose 127.0 mg/dl (70-99(Fasting)); Potassium 3.3 mmol/L (3.5-5.1); Sodium 141.0 mmol/L (136-145)
[2025-03-16 09:42] LABS: Immature Granulocytes # (auto) 0.06 K/uL (0.01-0.20); Immature Granulocytes % (auto) 0.6 %
[2025-03-16] MEDS: POTASSIUM CHLORIDE CRTAB 20 MEQ TABCR PO SCH (11:37)
--- NOTE | 2025-03-16 16:09 | Communication Note ---
Date of Service: March 16, 2025 Patient is still continuing to have about 5-6 loose bowel movements, has been on Dificid for about 5 days after failure of oral vancomycin, still complaining of some abdominal discomfort after eating food, was on liquid diet yesterday but started with solid food some increasing abdominal discomfort. No signs of toxicity, I will start cholestyramine to try to help solidify stools and help with C. difficile toxin
[2025-03-16 16:25] VITALS: BP 110/72; PULSE 70; TEMP 97.7; O2SAT 100
--- NOTE | 2025-03-16 17:24 | Discharge Summary ---
Discharge Summary Date of Service March 16, 2025 Principal Dx & Hospital Course #1 = Principal Diagnosis (1) Colitis: (2) C. difficile colitis: (3) Elevated lipase: Plan The patient is a 39-year-old male with past medical history including UC (on mesalamine suppositories), and C. difficile colitis. The presents to ED with abdominal pain, persistent diarrhea and increasing blood in stool. Due to a change in his usual symptoms, he had stool studies done a week ago, + cdiff, treated with [address] A/P showed a pancolitis, mild gastroenteritis, and cystitis. Lipase is mildly elevated at 407. Stool studies negative, including cdiff. Admitted for GI consultation. Upon discharge Kurtis has tolerated an advancement in diet without excessive bloody stooling. He still reports 5-6 occurrences of diarrhea per day with small amounts of production. K slightly decreased this am and repleted this am. His lab work is stable with normal CBC trends and decreasing CRP. He is not dizzy with ambulating. He reports some reproducible abdominal pain 1-2 hours post eating. Has not taken any pain medication and tolerating the pain. He feels he is stable for d/c and will follow up with [facility] as he is already an established patient. He will be provided with prescriptions including a Good Rx coupon for the completion of his Dificid course and is agreeable to the fine point. #C. difficile colitis/inflammatory colitis- Patient has known history of Ulcerative colitis, for which he takes mesalamine HI. Recently completed 5 day course of PO vanco. stool PCR testing is negative, including negative for C. difficile gene and C. difficile toxin. No recent abx use. -Dificid treatment for cdiff -GI consulted, Follows with [facility] on outside -flex sig 03/13 with evidence of ulcerative pancolitis with rec to start daily prednisone and oral mesalamine -prednisone 30mg daily, mesalamine 800mg po TID for pancolitis identified on flex sig -Pantoprazole 40 mg IV daily -CRP with downward trends -Surgical path with focal acute colitis is seen, acute and chronic inflammation of the lamina propria is seen but crypt abscesses and granulomata are not present. Differential diagnosis lies between C. difficile colitis, other infectious colitides and a self-limited colitis. -GI recs to d/c prednisone as biopsies most consistent with infectious colitis -ID consulted with rec to complete 10 day course of Dificid with treatment through 03/21/25 -GI rec to add Cholestyramine, ordered for d/c -Dificid 200mg on d/c #9 to complete full ten day course, Good Rx coupon supplied -Mesalamine 800mg po TID #Elevated Lipase - without signs of pancreatitis on imaging, denies hx of ETOH overuse or abuse -Hydrate - LR 125/hr, d/c IVF today -trends 493>399>515>352, less concern as values are not 3xULN, non-specific in setting of acute inflammatory state Dispo: d/c home with GI follow up in 1-2 weeks Admission HPI Per Admitting Provider The patient is a 39-year-old male with past medical history including colitis, and C. difficile colitis. The patient presents to the emergency department with complaint of abdominal pain, persistent diarrhea and increasing blood in stool. Has a history of colitis, for which she is on mesalamine rectally. Due to a change in his usual symptoms, he had stool studies done a week ago, and was told he had C. difficile. He was placed on vancomycin orally, has been on it for 5 days, and since he had no improvement, was sent by outpatient gastroenterology to the ED for assessment. In emergency department, patient had a CT scan of abdomen and pelvis which showed a pancolitis, mild gastroenteritis, and cystitis. Lipase is mildly elevated at 407. He was given a dose of Dificid 200 milligrams, and normal saline 1 L bolus. Stool BioFire was ordered and pending. Patient reports at this time he was unsure if what was present now is the aggravation of his underlying colitis, or persistence of his C. difficile colitis. He has had significantly decreased oral intake over the past several days. He was referred to the [facility] for admission, for further evaluation and treatment Discharge Exam GENERAL APPEARANCE: A&O. Sitting up in chair. NAD. SKIN: Normal color without rashes or lesions. Normal turgor. HEENT: Head AT/NC. Buccal mucosa is moist and pink. NECK: No jugular venous distention. No thyroid enlargement. There is no lymphadenopathy. HEART: RRR without m/g/r. LUNGS: Normal inspiratory effort. CTA without w/r/r. ABDOMEN: No guarding or rigidity. Normoactive BS in all four quadrants. Mild tenderness to LUQ of abdomen with palpation. MSK: No bony gross/deformities throughout. ROM intact. EXTREMITIES: No edema, No peripheral cyanosis. Neuro: CN 2-12 grossly intact. No focal neuro deficits PSYCHIATRIC: Normal affect. Eye contact is good. Speech is normal rate and content. Responses are appropriate. Discharge Plan Discharge Items Patient Disposition: Home - Self-Care Reason For Visit: C DIFF COLITIS, DEHYDRATION Discharge Diagnosis: C. Diff colitis Condition on Discharge: Good Activity: Resume your previous activity Bathing: No limitations Driving/Machine Use: No limitations Weightbearing: Full weightbearing Non-emergency contact: Primary Care Provider Call non-emergency contact if: you have any medication questions, your symptoms worsen, your pain is not controlled, your pain is worsening, you have a fever and your temperature is above 101.5 Follow-up/Referrals: Jonny Powell MD [Primary Care Provider] - Diet: Low Fiber Addtl Attending Provider Instructions: Mr. Cowan, You were admitted to the hospital for c. diff colitis. You have been treated with an antibiotic to treat the infection called Dificid. You will be supplied with the appropriate quantity to complete your course of treatment. Please follow up with Meryl Ramirez PA-C at [facility] within one week of discharge. You are still considered infectious until 48 hours after your diarrhea resolves and this may take some time. Please ensure you are drinking Pedialyte and not plain water to maintain appropriate hydration status while your diarrhea may still persist for some time. Medications: Your medication list has been reviewed and reconciled upon discharge to ensure accuracy and continuity of care. An updated list of all your medications is included with your hospital discharge paperwork. Please review this list closely, and make note of any changes. We sent a new medication called Dificid to your pharmacy. Take Dificid two times a day until the pills are gone. A new prescription for oral mesalamine 400mg, 2 tablets three times daily was also sent. You were also sent a medication to help solidify your stool called Cholestyramine. You can use this as needed. Take your medications as instructed; do not skip a dose of your medicines. Make sure all of your doctors know every medicine you are taking (including jjrj-snp-qfioiks medicines, vitamins, and supplements). Call your primary care provider before taking any new medicines (including over- the-counter medicines, vitamins, and supplements), because some of these may interact with your current medications, or may make your symptoms worse. Tell your primary care provider if you cannot afford your medications. Activity: You can do normal everyday activities as your body allows. Take rest breaks if you feel tired. Do not overexert. Stop activity if you have pain, shortness of breath or feel dizzy. Follow-up appointments: Make an appointment with your primary care physician within one week of discharge. A copy of this summary will be sent to them. Every time you see your primary care physician, or any other doctor, bring your medication list, and a list of questions. CONTACT YOUR PRIMARY CARE PROVIDER if you experience any of the following: Shortness of breath or difficulty breathing Fevers or chills Feeling tired with normal activity or experiencing dizziness or fainting Difficulty following your treatment plan, or difficulty taking medications CALL 911 OR GO TO THE EMERGENCY DEPARTMENT if you experience any of the following: Severe abdominal pain or nausea/vomiting Severe chest pain, or chest pain that radiates (moves) to your jaw or arm Sudden, severe shortness of breath or difficulty breathing Thank you for allowing us to participate in your care. Pending Studies at Discharge: No Stand-Alone Forms: My GroupSwim, Work/School Release, Smoking Derrick sation Medications and DC Order Prescriptions: New fidaxomicin [Dificid] 200 mg Tablet 200 mg PO BID Qty: 4 0RF mesalamine 400 mg Capsule (With Del Rel Tablets) 800 mg PO TID Qty: 180 0RF Prevalite 4 gram Powder In Packet 4 g PO BID@1000,2200 PRN (Reason: diarrhea) Qty: 42 0RF fidaxomicin 200 mg tablet 200 mg PO BID Qty: 9 0RF Discontinued prednisone 10 mg Tablet 0 mg PO DIRECTED Rx Instructions: PER PT "DID NOT COMM[facility]ITY [facility] SPECIALIST FROM PHARMACY YET, UNSURE OF STRENGTH". vancomycin 125 mg Capsule 125 mg PO QID Rx Instructions: PER PT "COURSE ENDS 03/16/25". mesalamine 1,000 mg Suppository 1 g HI HS Discharge Orders: Discharge Order (Routine); Ordered 03/16/25 Ordered By: Marely Og/Other Patient Handouts: Clostridium Difficile Infection, C. Diff Prevent Infection, What Is C. Diff?, My C. Diff Infection Treatment Plan Admission Data Admit Date/Time: 03/13/25 15:30 Attending Provider: Pamela Membreno Admit Provider: Ted Gar Primary Care Provider: Jonny Powell. Other Providers: Ted Gar; Chpain Clark Jr Other Interventions: Discharge Summary Assessment (RN) Last Done: 03/13/25 16:41 Hospital Stay Data Consultations 03/11/25 20:08 ED Decision to Admit Stat 03/12/25 00:35 Consult Gastroenterology Routine 03/15/25 13:06 Consult Infectious Diseases Routine Procedures Performed Operation Date: 03/13/25 17:55 Actual Procedures p Flexible Sigmoidoscopy - Chapin Clark Jr, MD Diagnostic Imagining Performed 03/11/25 18:46 CT abd pelvis IV con only Stat Pending Results Patient Have Any Pending Studies at Discharge: No Discharge Instructions Given to Patient (Per Discharging Provider) Mr. Cowan, Edin were admitted to the hospital for c. diff colitis. You have been treated with an antibiotic to treat the infection called Dificid. You will be supplied with the appropriate quantity to complete your course of treatment. Please follow up with Meryl Ramirez PA-C at [facility] within one week of discharge. You are still considered infectious until 48 hours after your diarrhea resolves and this may take some time. Please ensure you are drinking Pedialyte and not plain water to maintain appropriate hydration status while your diarrhea may still persist for some time. Medications: Your medication list has been reviewed and reconciled upon discharge to ensure accuracy and continuity of care. An updated list of all your medications is included with your hospital discharge paperwork. Please review this list closely, and make note of any changes. We sent a new medication called Dificid to your pharmacy. Take Dificid two times a day until the pills are gone. A new prescription for oral mesalamine 400mg, 2 tablets three times daily was also sent. You were also sent a medication to help solidify your stool called Cholestyramine. You can use this as needed. Take your medications as instructed; do not skip a dose of your medicines. Make sure all of your doctors know every medicine you are taking (including wswq-uxn-[id number] medicines, vitamins, and supplements). Call your primary care provider before taking any new medicines (including over- the-counter medicines, vitamins, and supplements), because some of these may interact with your current medications, or may make your symptoms worse. Tell your primary care provider if you cannot afford your medications. Activity: You can do normal everyday activities as your body allows. Take rest breaks if you feel tired. Do not overexert. Stop activity if you have pain, shortness of breath or feel dizzy. Follow-up appointments: Make an appointment with your primary care physician within one week of discharge. A copy of this summary will be sent to them. Every time you see your primary care physician, or any other doctor, bring your medication list, and a list of questions. CONTACT YOUR PRIMARY CARE PROVIDER if you experience any of the following: Shortness of breath or difficulty breathing Fevers or chills Feeling tired with normal activity or experiencing dizziness or fainting Difficulty following your treatment plan, or difficulty taking medications CALL 911 OR GO TO THE EMERGENCY DEPARTMENT if you experience any of the following: Severe abdominal pain or nausea/vomiting Severe chest pain, or chest pain that radiates (moves) to your jaw or arm Sudden, severe shortness of breath or difficulty breathing Thank you for allowing us to participate in your care. Total Time Total Time Spent Total Time Spent (In Minutes): I spent a total of 50 minutes on the date of service in review of patient's record, and previously obtained information in person and appropriate medical visit, discussion and education of plan, with patient and/or caregiver, placing orders for tests/referral/procedures as medically necessary and documentation of pertinent clinical information in patient's medical records for their visit today. Coding Level of Care Code 87527 INP/OBS DISCH >30 MIN Diagnoses Colitis K52.9 C. difficile colitis A04.72 Elevated lipase R74.8
[2025-03-16] MEDS: FIDAXOMICIN 200 MG TAB PO ONE (17:53)
[2025-03-16] MEDS ORDERED: CHOLESTYRAMINE LIGHT 4 GM PKT PO SCH (22:00)
== END 2025-03-16 18:17 | disposition home or self-care (01) | DRG 387 ==
LOC: 3N 17:09 → ED 17:09 → SUATTDRO 22:05 → 3N 23:53 → SUATTDRO 03-13 15:30